=== PATIENT | female | born 1960 | race Caucasian/White ===

== ENCOUNTER 2017-09-19 13:23 | Inpatient (IN) | payer SELFPAY ==
--- NOTE | 2017-09-19 14:11 | ER Document Report ---
ED General - General Chief Complaint: Knee Injury Stated Complaint: FALL KNEE PAIN Time Seen by Provider: 09/19/17 13:36 Mode of Arrival: Medic Information source: Patient, Emergency Med Personnel Notes: 56-year-old female presents with complaints of right knee injury. Patient notes she tripped off a few steps and landed on her knee. Patient felt that her knee gave out when she tried to move it and that there is crunching sound. She denies any other injuries Patient denies any medical history notes she did fall off a horse had 9 rib fractures and some vertebral fractures in the past - HPI Onset: Just prior to arrival Onset/Duration: Sudden Quality of pain: Sharp Severity: Severe Pain Level: 5 Associated symptoms: Body/muscle aches Exacerbated by: Movement Relieved by: Denies Similar symptoms previously: No Recently seen / treated by doctor: No - Related Data Allergies/Adverse Reactions: No Known Allergies Allergy (Verified 09/19/17 13:36) Past Medical History - Social History Smoking Status: Never Smoker Cigarette use (# per day): No Chew tobacco use (# tins/day): No Smoking Education Provided: No Frequency of alcohol use: Occasional Drug Abuse: None Family History: Reviewed & Not Pertinent Patient has suicidal ideation: No Patient has homicidal ideation: No Renal/ Medical History: Denies: Hx Peritoneal Dialysis Review of Systems - Review of Systems Notes: REVIEW OF SYSTEMS: CONSTITUTIONAL : Denies fever, chills, or sweats. Denies recent illness. EENT: Denies eye, ear, throat, or mouth pain or symptoms. Denies nasal or sinus congestion or discharge. Denies throat, tongue, or mouth swelling or difficulty swallowing. CARDIOVASCULAR: Denies chest pain. Denies palpitations or racing or irregular heart beat. Denies ankle edema. RESPIRATORY: Denies cough, cold, or chest congestion. Denies shortness of breath, difficulty breathing, or wheezing. GASTROINTESTINAL: Denies abdominal pain or distention. Denies nausea, vomiting , or diarrhea. Denies blood in vomitus, stools, or per rectum. Denies black, tarry stools. Denies constipation. GENITOURINARY: Denies difficulty urinating, painful urination, burning, frequency, blood in urine, or discharge. FEMALE GENITOURINARY: Denies vaginal bleeding, heavy or abnormal periods, irregular periods. Denies vaginal discharge or odor. MUSCULOSKELETAL: Admits to right knee pain SKIN: Denies rash, lesions or sores. HEMATOLOGIC : Denies easy bruising or bleeding. LYMPHATIC: Denies swollen, enlarged glands. NEUROLOGICAL: Denies confusion or altered mental status. Denies passing out or loss of consciousness. Denies dizziness or lightheadedness. Denies headache. Denies weakness or paralysis or loss of use of either side. Denies problems with gait or speech. Denies sensory loss, numbness, or tingling. Denies seizures. PSYCHIATRIC: Denies anxiety or stress. Denies depression, suicidal ideation, or homicidal ideation. ALL OTHER SYSTEMS REVIEWED AND NEGATIVE. PHYSICAL EXAMINATION: GENERAL: Well-appearing, well-nourished and in no acute distress. HEAD: Atraumatic, normocephalic. EYES: Pupils equal round and reactive to light, extraocular movements intact, conjunctiva are normal. ENT: Nares patent, oropharynx clear without exudates. Moist mucous membranes. NECK: Normal range of motion, supple without lymphadenopathy LUNGS: Breath sounds clear to auscultation bilaterally and equal. No wheezes rales or rhonchi. HEART: Regular rate and rhythm without murmurs ABDOMEN: Soft, nontender, nondistended abdomen. No guarding, no rebound. No masses appreciated. Female : deferred Musculoskeletal: Limited range of motion of the right knee secondary to pain, there is a large effusion of the right knee noted pulses intact sensation motor function and foot normal NEUROLOGICAL: Cranial nerves grossly intact. Normal speech, normal gait. Normal sensory, motor exams PSYCH: Normal mood, normal affect. SKIN: [place] Dictation was performed using untapt voice recognition software Physical Exam - Vital signs Vitals: Temp Pulse Resp BP Pulse Ox 97.7 F 68 17 150/77 H 98 09/19/17 13:33 09/19/17 13:33 09/19/17 13:33 09/19/17 13:33 09/19/17 13:33 Course - Re-evaluation Re-evalutation: 09/19/17 14:34 Comminuted fracture tibial plateau noted, patient will be admitted to Dr. Manzo service for surgical intervention - Vital Signs Vital signs: Temp Pulse Resp BP Pulse Ox 97.7 F 68 17 150/77 H 98 09/19/17 13:33 09/19/17 13:33 09/19/17 13:33 09/19/17 13:33 09/19/17 13:33 - Laboratory Result Diagrams: 09/19/17 14:12 09/19/17 14:12 Laboratory results interpreted by me: 09/19/17 14:12 Seg Neutrophils % 84.4 H Lymphocytes % 9.0 L - Diagnostic Test Radiology reviewed: Image reviewed - Comminuted tibial plateau fracture with displacement on the right two-view knee, Reports reviewed Procedures - Immobilization Right Knee Time completed: 15:00 Pre-Proc Neuro Vasc Exam: Normal Immobilizer type: Knee immobilizer Performed by: PCT Post-Proc Neuro Vasc Exam: Normal Alignment checked and good: Yes Discharge - Discharge Clinical Impression: Knee fracture, right Condition: Stable Disposition: ADMITTED INPATIENT Admitting Provider: Surgicalist Unit Admitted: Surgical Floor
--- NOTE | 2017-09-19 14:30 | RADIOLOGY REPORT (SQ) ---
EXAM DESCRIPTION: KNEE RIGHT 2 VIEWS COMPLETED DATE/TIME: 09/19/2017 2:16 pm REASON FOR STUDY: Fall COMPARISON: None. NUMBER OF VIEWS: Two views. TECHNIQUE: AP and lateral radiographic images acquired of the right knee. LIMITATIONS: None. FINDINGS: MINERALIZATION: Normal. BONES: There is a comminuted intra-articular fracture of the proximal tibia with involvement of both the medial and lateral tibial plateaus and moderate displacement of the dominant medial plateau fract ure fragment resulting in a Schatzker type 4 fracture. Bones otherwise intact. JOINT: Lipohemarthrosis. SOFT TISSUES: Soft tissue swelling. OTHER: No other significant finding. IMPRESSION: SCHATZKER TYPE FOR TIBIAL PLATEAU FRACTURE DETAILED ABOVE. ORTHOPEDIC SURGICAL CONSU LTATION RECOMMENDED. TECHNICAL DOCUMENTATION: JOB ID: [id number] [employer]- All Rights Reserved Reading location - IP/workstation name: [email or web address]
[2017-09-19] MEDS ORDERED: HYDROMORPHONE HCL INJ/PF 2 MG/ML AMPULE IV ONE (14:32)
[2017-09-19 14:55] LABS: ABSOLUTE BASOPHILS # (AUTO) 0.1 10^3/uL (0.0-0.2); ABSOLUTE EOSINOPHILS # (AUTO) 0.1 10^3/uL (0.0-0.6); ABSOLUTE LYMPHOCYTES (AUTO) 0.8 10^3/uL (0.5-4.7); ABSOLUTE MONOCYTES (AUTO) 0.5 10^3/uL (0.1-1.4); ABSOLUTE NEUT (AUTO) 7.9 10^3/uL (1.7-8.2); BASOPHILS % (AUTO) 0.7 % (0-2); HEMATOCRIT 39.3 % (36.0-47.0); HEMOGLOBIN 13.2 g/dL (12.0-15.5); MEAN CORPUSCULAR HEMOGLOBIN 27.6 pg (27.0-33.4); MEAN CORPUSCULAR HGB CONC 33.6 g/dL (32.0-36.0); MEAN CORPUSCULAR VOLUME 82 fl (80-97); MONOCYTES % (AUTO) 4.9 % (3-13); PLATELET COUNT 199 10^3/uL (150-450); RED BLOOD COUNT 4.78 10^6/uL (3.72-5.28); RED CELL DISTRIBUTION WIDTH 12.9 % (11.5-14.0); SEGMENTED NEUTROPHILS % (AUTO) 84.4 % (42-78); TOTAL CELLS COUNTED % (AUTO) 100 %; WHITE BLOOD COUNT 9.3 10^3/uL (4.0-10.5)
--- NOTE | 2017-09-19 16:03 | RADIOLOGY REPORT (SQ) ---
EXAM DESCRIPTION: CHEST SINGLE VIEW COMPLETED DATE/TIME: 09/19/2017 3:53 pm REASON FOR STUDY: preop for right tibial plateau fracture. COMPARISON: None. EXAM PARAMETERS: NUMBER OF VIEWS: One view. TECHNIQUE: Single frontal radiographic view of the chest acquired. RADIATION DOSE: NA LIMITATIONS: None. FINDINGS: LUNGS AND PLEURA: No consolidation, pneumothorax or pleural effusion. MEDIASTINUM AND HILAR STRUCTURES: No masses. Contour normal. HEART AND VASCULAR STRUCTURES: Heart normal in size. Normal vasculature. BONES: There is a healed fracture at the right 7th rib. HARDWARE: None in the chest. IMPRESSION: NO ACUTE RADIOGRAPHIC FINDING IN THE CHEST. TECHNICAL DOCUMENTATION: JOB ID: [id number] [place]-[id number] 2010 [employer]- All Rights Reserved Reading location - IP/workstation name: [email or web address]
[2017-09-19 16:38] LABS: ALANINE AMINOTRANSFERASE 31 U/L (9-52); ALBUMIN 4.3 g/dL (3.5-5.0); ALKALINE PHOSPHATASE 83 U/L (38-126); ANION GAP 14 (5-19); ASPARTATE AMINO TRANSFERASE 24 U/L (14-36); BILIRUBIN,DIRECT 0.3 mg/dL (0.0-0.4); BILIRUBIN,TOTAL 0.7 mg/dL (0.2-1.3); BLOOD UREA NITROGEN 15 mg/dL (7-20); CALCIUM 9.8 mg/dL (8.4-10.2); CARBON DIOXIDE 25 mmol/L (22-30); CHLORIDE 103 mmol/L (98-107); GLUCOSE 98 mg/dL (75-110); POTASSIUM 4.3 mmol/L (3.6-5.0); SODIUM 141.8 mmol/L (137-145); TOTAL PROTEIN 7.6 g/dL (6.3-8.2)
[2017-09-19] MEDS ORDERED: GLUCAGON,HUMAN RECOMB 1 MG INJ SUBCUT PRN (17:29)
[2017-09-19] MEDS ORDERED: DEXTROSE 40% GEL 15 GM TUBE PO PRN ×2 (17:29)
[2017-09-19] MEDS ORDERED: DEXTROSE 50%-WATER 25 GM/50 ML DISP.SYRIN IV PRN ×2 (17:29)
[2017-09-19] MEDS ORDERED: RINGERS SOLUTION,LACTATED 1,000 ML IV PRN (17:59)
[2017-09-19] MEDS: HYDROMORPHONE HCL INJ/PF 2 MG/ML AMPULE IV PRN (20:47)
[2017-09-20] MEDS: HYDROMORPHONE HCL INJ/PF 2 MG/ML AMPULE IV PRN ×3 (03:12→12:29)
[2017-09-20] MEDS ORDERED: CEFAZOLIN 2 GM/D5W RTU 2 GM/50 ML RTUPB IV PRN (06:34)
--- NOTE | 2017-09-20 06:38 | PDOC H&P ---
History of Present Illness Admission Date/PCP: 09/19/17 14:44 History of Present Illness: SURAJ DELA CRUZ is a 56 year old female with a noncontributory past medical history who tripped and fell and sustained an injury to her right knee. She was brought to the emergency room where a displaced right medial tibial plateau fracture was identified. She is admitted to orthopedic service for fracture management. Past Medical History Cardiac Medical History: Denies: None, Atrial Fibrillation, Congestive Heart Failure, Coronary Artery Disease, DVT, Myocardial Infarction, Hyperlipidema, Hypertension, Peripheral Vascular Disease, Pulmonary Embolism, Heart Murmur, Other Pulmonary Medical History: Denies: None, Asthma, Bronchitis, Chronic Obstructive Pulmonary Disease (COPD ), Intubation, Pneumonia, Respiratory Failure, Sleep Apnea, Tuberculosis, Other Malignancy Medical History: Denies: None, Bone Cancer, Brain Cancer, Breast Cancer, Cervical Cancer, Colorectal Cancer, Leukemia, Liver Cancer, Lung Cancer, Lymphoma, Ovarian Cancer , Pancreatic Cancer, Renal (Kidney) Cancer, Skin Cancer, Other Psychiatric Medical History: Denies: Depression Past Surgical History Past Surgical History: Reports: None Social History Information Source: Patient, [facility] Records Lives with: Family Smoking Status: Never Smoker Frequency of Alcohol Use: Social Hx Recreational Drug Use: No Drugs: None Hx Prescription Drug Abuse: No Family History Family History: Reviewed & Not Pertinent Parental Family History Reviewed: No Children Family History Reviewed: No Sibling(s) Family History Reviewed.: No Medication/Allergy Home Medications: No Home Medications 09/19/17 Allergies/Adverse Reactions: No Known Allergies Allergy (Verified 09/19/17 13:36) Review of Systems All systems: as per [facility] Physical Exam Vital Signs: Temp Pulse Resp BP Pulse Ox 37.3 C 85 18 130/65 H 95 09/19/17 23:03 09/19/17 23:03 09/19/17 23:03 09/19/17 23:03 09/19/17 23:03 Intake & Output 09/18/17 09/19/17 09/20/17 06:59 06:59 06:59 Intake Total 240 Balance 240 Weight 83.3 kg Physical Exam: The patient is a middle-aged white female lying in hospital bed. She is in minimal distress. She is alert oriented and appropriate. Right extremity is elevated on pillows. Knee immobilizer in place. General appearance: PRESENT: no acute distress Head exam: PRESENT: normocephalic Respiratory exam: PRESENT: unlabored Cardiovascular exam: PRESENT: RRR Pulses: PRESENT: +1 pedal pulses bilateral Vascular exam: PRESENT: normal capillary refill GI/Abdominal exam: PRESENT: soft Rectal exam: PRESENT: deferred Neurological exam: PRESENT: alert, awake, oriented to person, oriented to place , oriented to time, oriented to situation. ABSENT: motor sensory deficit Psychiatric exam: PRESENT: appropriate affect, normal mood. ABSENT: homicidal ideation, suicidal ideation Skin exam: PRESENT: dry, intact, warm. ABSENT: cyanosis, rash Results Laboratory Results: 09/19/17 15:50 09/19/17 15:50 Sodium 141.8 Potassium 4.3 Chloride 103 Carbon Dioxide 25 Anion Gap 14 BUN 15 Creatinine 0.69 Est GFR ( Amer) > 60 Est GFR (Non-Af Amer) > 60 Glucose 98 Calcium 9.8 Total Bilirubin 0.7 AST 24 ALT 31 Alkaline Phosphatase 83 Total Protein 7.6 Albumin 4.3 Impressions: Knee X-Ray 09/19/17 00:00 IMPRESSION: SCHATZKER TYPE FOR TIBIAL PLATEAU FRACTURE DETAILED ABOVE. ORTHOPEDIC SURGICAL CONSULTATION RECOMMENDED. Chest X-Ray 09/19/17 14:10 IMPRESSION: NO ACUTE RADIOGRAPHIC FINDING IN THE CHEST. Status: Imported from PACS Assessment & Plan - Diagnosis (1) Tibial plateau fracture, right Qualifiers: Encounter type: initial encounter Fracture type: closed Qualified Code(s) : S82.141A - Displaced bicondylar fracture of right tibia, initial encounter for closed fracture Is this a current diagnosis for this admission?: Yes Plan: 56-year-old white female with a noncontributory past medical history now a displaced right tibial plateau fracture. Patient be best served with an open reduction internal fixation of the fracture. There is been discussed with her in great detail in terms of both the internal fixation recommended as well as a surgical approach. We will proceed with this under choice anesthesia on an inpatient basis. - Time Time Spent: 50 to 70 Minutes Critical Time spent with patient: 15-24 minutes Anticipated discharge: Home with Homehealth Within: Other
[2017-09-20] MEDS ORDERED: TRANEXAMIC ACID 1,000 MG in DEXTROSE 5%-WATER 50 ML IV PRN (06:43)
--- NOTE | 2017-09-20 08:48 | RADIOLOGY REPORT (SQ) ---
EXAM DESCRIPTION: CT RT LOWER EXTREMITY WITHOUT COMPLETED DATE/TIME: 09/20/2017 8:30 am REASON FOR STUDY: pre surgery today- needs 3d reconstructio COMPARISON: Right knee films 09/19/2017 TECHNIQUE: CT scan of the right knee performed without intravenous or oral contrast. Images reviewe d with soft tissue and bone windows. Reconstructed coronal and sagittal MPR images reviewed. All im ages stored on PACS. Additional 3D shaded surface display images were saved to PACS. All CT scanners at this facility use dose modulation, iterative reconstruction, and/or weight based d osing when appropriate to reduce radiation dose to as low as reasonably achievable (ALARA). [facility]: Dose Right [facility]: CareDose [facility]: Dose Right [facility]: Teradose 4D [facility]: Curbside RADIATION DOSE: 5 mGy. LIMITATIONS: None. FINDINGS: Grossly normal bone density. Comminuted proximal right tibia fracture is present. The fracture line extends from the interspinous region to the medial tibial metaphysis, with a large medial tibial plateau fragment mildly displaced with mild articular surface depression. Less than 5 mm of articular surface depression. This is b est shown on coronal reconstruction image 31. There is a fracture through the posterior edge lateral tibial plateau. The dorsal edge of the low la teral tibial plateau is displaced dorsally with 8 mm of depression of the articular surface best show n on sagittal reconstruction image 28. On the sagittal reconstructions the anterior cruciate ligament appears to be torn. Posterior cruciat e ligament intact. Quadriceps and patellar tendons grossly intact. Menisci not well seen. Distal femur, proximal fibula, patella in the field of view are intact. Large suprapatellar knee joint effusion with lipohemarthrosis. IMPRESSION: Acute fracture through the proximal right tibia as above. TECHNICAL DOCUMENTATION: JOB ID: [id number] Quality ID # [id number]: Final reports with documentation of one or more dose reduction techniques (e.g., Au tomated exposure control, adjustment of the mA and/or kV according to patient size, use of iterative reconstruction technique) 2010 [employer]- All Rights Reserved Reading location - IP/workstation name: [email or web address]
[2017-09-20] MEDS ORDERED: LIDOCAINE 2% INJ-PF (20 MG/ML) 2 ML AMPUL ONE (09:38)
[2017-09-20] MEDS ORDERED: SUCCINYLCHOLINE CHLORIDE INJ 200 MG/10 ML VIAL ONE (09:38)
[2017-09-20] MEDS ORDERED: CEFAZOLIN INJ 1 GM VIAL ONE (13:56)
[2017-09-20] MEDS ORDERED: MIDAZOLAM 2 MG/2 ML INJ ONE (13:59)
[2017-09-20] MEDS ORDERED: FENTANYL CITRATE INJ/PF 100 MCG/2 ML AMPUL ONE (13:59)
[2017-09-20] MEDS ORDERED: PROPOFOL INJ 200 MG/20 ML VIAL IV ONE (13:59)
[2017-09-20] MEDS ORDERED: HYDROMORPHONE HCL INJ/PF 2 MG/ML AMPULE ONE (14:00)
[2017-09-20] MEDS ORDERED: ACETAMINOPHEN 100 ML IV ONE (14:00)
[2017-09-20] MEDS: TRANEXAMIC ACID INJ/PF 1,000 MG/10 ML SDV IV ONE ×2 (14:25→14:51)
[2017-09-20] MEDS ORDERED: ONDANSETRON HCL INJ/PF 4 MG/2 ML SDV IV PRN (14:54)
[2017-09-20] MEDS ORDERED: PROMETHAZINE HCL INJ 25 MG/1 ML VIAL IV PRN (14:54)
[2017-09-20] MEDS ORDERED: DIPHENHYDRAMINE HCL 50 MG/ML VIAL IV PRN (14:54)
[2017-09-20] MEDS ORDERED: FENTANYL CITRATE INJ/PF 100 MCG/2 ML AMPUL IV PRN ×3 (14:54)
--- NOTE | 2017-09-20 15:24 | Operative Report ---
Operative Report DATE OF SURGERY: 09/20/17 PREOPERATIVE DIAGNOSIS: Right tibial plateau fracture OPERATION: Open reduction internal fixation right tibial plateau fracture SURGEON: RENARD VILLEGAS ANESTHESIA: GA ESTIMATED BLOOD LOSS: 100 PROCEDURE: With the patient supine and operative table the right lower extreme was prepped and draped in sterile fashion. The limb is elevated for exsanguination tourniquet inflated 280 torr. A hockey-stick type incision is made over the anteromedial aspect of the tibia. Sharp dissection was carried incision through the periosteal. The periosteum was elevated. Subsequently pelvic reduction forceps is placed across the proximal tibia through a stab wound in the lateral compartment and over the medial compartment as exposed. Is used to affected an anatomic reduction tibial plateau. Subsequent [place] titanium proximal tibial plate is applied medially and secured with 4 screws distally, 1 kick stand screw, and then 3 screws across the sub-chondral region. The fracture reduction hardware placement checked fluoroscopically and felt to be adequate. The tourniquet is deflated. The wound is irrigated. Is closed in layers with interrupted Vicryl followed by luis fernando. A sterile compressive dressing was applied and the patient returned to PACU in satisfactory vision.
[2017-09-20] MEDS ORDERED: RINGERS SOLUTION,LACTATED 1,000 ML IV PRN (15:33)
[2017-09-20] MEDS ORDERED: ONDANSETRON 4 MG TAB.RAPDIS SL PRN (15:34)
[2017-09-20] MEDS: FENTANYL CITRATE INJ/PF 100 MCG/2 ML AMPUL ONE ×2 (15:55→16:00)
[2017-09-20] MEDS: MORPHINE SULFATE 10 MG/ML INJ IV SCH ×5 (16:44→23:57)
--- NOTE | 2017-09-20 17:26 | RADIOLOGY REPORT (SQ) ---
EXAM DESCRIPTION: KNEE RIGHT 2 VIEWS; NO CHG FLUORO COMPLETED DATE/TIME: 09/20/2017 3:30 pm REASON FOR STUDY: ORIF RT KNEE COMPARISON: CT right lower extremity 09/20/2017 FLUOROSCOPY TIME: 0.6 minutes 25 images acquired, 5 saved images to PACS. TECHNIQUE: Intra-operative images acquired during surgical procedure to evaluate progress. NUMBER OF IMAGES: 5 images saved to PACS LIMITATIONS: None. FINDINGS: Intra procedural imaging and fluoro during ORIF right tibial plateau fracture. IMPRESSION: Intra procedural imaging and fluoro during ORIF right tibial plateau fracture COMMENT: Quality ID [id number]: Final reports for procedures using fluoroscopy that document radiation exp osure indices, or exposure time and number of fluorographic images (if radiation exposure indices are not available) Please consult full operative report of the attending physician for description of the procedure. TECHNICAL DOCUMENTATION: JOB ID: [id number] [employer]- All Rights Reserved Reading location - IP/workstation name: [email or web address]
--- NOTE | 2017-09-20 17:26 | RADIOLOGY REPORT (SQ) ---
EXAM DESCRIPTION: KNEE RIGHT 2 VIEWS; NO CHG FLUORO COMPLETED DATE/TIME: 09/20/2017 3:30 pm REASON FOR STUDY: ORIF RT KNEE COMPARISON: CT right lower extremity 09/20/2017 FLUOROSCOPY TIME: 0.6 minutes 25 images acquired, 5 saved images to PACS. TECHNIQUE: Intra-operative images acquired during surgical procedure to evaluate progress. NUMBER OF IMAGES: 5 images saved to PACS LIMITATIONS: None. FINDINGS: Intra procedural imaging and fluoro during ORIF right tibial plateau fracture. IMPRESSION: Intra procedural imaging and fluoro during ORIF right tibial plateau fracture COMMENT: Quality ID [id number]: Final reports for procedures using fluoroscopy that document radiation exp osure indices, or exposure time and number of fluorographic images (if radiation exposure indices are not available) Please consult full operative report of the attending physician for description of the procedure. TECHNICAL DOCUMENTATION: JOB ID: [id number] [employer]- All Rights Reserved Reading location - IP/workstation name: [email or web address]
[2017-09-20] MEDS ORDERED: TRANEXAMIC ACID INJ/PF 1,000 MG/10 ML SDV IV ONE (17:30)
[2017-09-21] MEDS: MORPHINE SULFATE 10 MG/ML INJ IV SCH ×6 (03:02→14:03)
[2017-09-21 06:27] LABS: ABSOLUTE LYMPHOCYTES (AUTO) 0.7 10^3/uL (0.5-4.7); ABSOLUTE NEUT (AUTO) 8.9 10^3/uL (1.7-8.2); BASOPHILS % (AUTO) 0.4 % (0-2); EOSINOPHILS % (AUTO) 0.3 % (0-6); HEMOGLOBIN 11.4 g/dL (12.0-15.5); LYMPHOCYTES % (AUTO) 6.4 % (13-45); MEAN CORPUSCULAR HEMOGLOBIN 27.6 pg (27.0-33.4); MEAN CORPUSCULAR HGB CONC 33.5 g/dL (32.0-36.0); MEAN CORPUSCULAR VOLUME 83 fl (80-97); MONOCYTES % (AUTO) 9.4 % (3-13); PLATELET COUNT 147 10^3/uL (150-450); RED BLOOD COUNT 4.11 10^6/uL (3.72-5.28); RED CELL DISTRIBUTION WIDTH 12.7 % (11.5-14.0); SEGMENTED NEUTROPHILS % (AUTO) 83.5 % (42-78); TOTAL CELLS COUNTED % (AUTO) 100 %; WHITE BLOOD COUNT 10.6 10^3/uL (4.0-10.5)
[2017-09-21 06:44] LABS: ANION GAP 11 (5-19); BLOOD UREA NITROGEN 13 mg/dL (7-20); CALCIUM 8.6 mg/dL (8.4-10.2); CARBON DIOXIDE 26 mmol/L (22-30); CHLORIDE 100 mmol/L (98-107); GLUCOSE 132 mg/dL (75-110); POTASSIUM 3.9 mmol/L (3.6-5.0)
--- NOTE | 2017-09-21 07:23 | PDOC PROGRESS REPORT ---
Subjective Progress Note for:: 09/21/17 Reason For Visit: RIGHT TIBIAL PLATEAU FRACTURE 56-year-old white female postop day 1 from an open reduction internal fixation of a right tibial plateau fracture Physical Exam Vital Signs: Temp Pulse Resp BP Pulse Ox 37.4 C 90 18 152/76 H 96 09/21/17 04:06 09/21/17 04:06 09/21/17 04:06 09/21/17 04:06 09/21/17 04:06 Intake & Output 09/20/17 09/21/17 09/22/17 06:59 06:59 06:59 Intake Total 240 5085 Output Total 520 Balance 240 4565 Weight 83.3 kg 83.3 kg General appearance: PRESENT: mild distress Head exam: PRESENT: normocephalic Respiratory exam: PRESENT: unlabored Cardiovascular exam: PRESENT: RRR Pulses: PRESENT: +1 pedal pulses bilateral Vascular exam: PRESENT: normal capillary refill GI/Abdominal exam: PRESENT: soft Rectal exam: PRESENT: deferred Extremities exam: PRESENT: other - Right lower extremity dressings clean dry and intact. Distal neurovascular examination is intact. Neurological exam: PRESENT: alert, awake, oriented to person, oriented to place , oriented to time, oriented to situation. ABSENT: motor sensory deficit Psychiatric exam: PRESENT: appropriate affect, normal mood. ABSENT: homicidal ideation, suicidal ideation Skin exam: PRESENT: dry, intact, warm. ABSENT: cyanosis, rash Results Laboratory Results: 09/21/17 05:36 09/21/17 05:36 09/21/17 09/21/17 05:36 05:36 WBC 10.6 H RBC 4.11 Hgb 11.4 L Hct 34.0 L MCV 83 MCH 27.6 MCHC 33.5 RDW 12.7 Plt Count 147 L Seg Neutrophils % 83.5 H Lymphocytes % 6.4 L Monocytes % 9.4 Eosinophils % 0.3 Basophils % 0.4 Absolute Neutrophils 8.9 H Absolute Lymphocytes 0.7 Absolute Monocytes 1.0 Absolute Eosinophils 0.0 Absolute Basophils 0.0 Sodium 137.0 Potassium 3.9 Chloride 100 Carbon Dioxide 26 Anion Gap 11 BUN 13 Creatinine 0.60 Est GFR ( Amer) > 60 Est GFR (Non-Af Amer) > 60 Glucose 132 H Calcium 8.6 Impressions: Chest X-Ray 09/19/17 14:10 IMPRESSION: NO ACUTE RADIOGRAPHIC FINDING IN THE CHEST. Fluoroscopy 09/20/17 00:00 IMPRESSION: Intra procedural imaging and fluoro during ORIF right tibial plateau fracture Knee X-Ray 09/20/17 00:00 IMPRESSION: Intra procedural imaging and fluoro during ORIF right tibial plateau fracture Lower Extremity CT 09/20/17 00:00 IMPRESSION: Acute fracture through the proximal right tibia as above. Status: Imported from PACS Assessment & Plan - Diagnosis (1) Tibial plateau fracture, right Qualifiers: Encounter type: initial encounter Fracture type: closed Qualified Code(s) : S82.141A - Displaced bicondylar fracture of right tibia, initial encounter for closed fracture Is this a current diagnosis for this admission?: Yes Plan: 56-year-old white female postop day 1 status post open reduction internal fixation of a right tibial plateau fracture. Plan will be mobilization with physical therapy today on a touchdown weightbearing restriction on the right lower extremity. - Time Time Spent with patient: 15-24 minutes Anticipated discharge: Other Within: Other
[2017-09-21] MEDS ORDERED: ACETAMINOPHEN 325 MG TABLET PO PRN (08:43)
[2017-09-21] MEDS ORDERED: ACETAMINOPHEN 325 MG TABLET ONE (08:48)
[2017-09-21] MEDS: ASPIRIN 81 MG TABLET, ENT COATED PO SCH (08:49)
[2017-09-21] MEDS: OXYCODONE HCL IR 5 MG TABLET PO PRN ×2 (12:38→20:26)
[2017-09-22] MEDS: OXYCODONE HCL IR 5 MG TABLET PO PRN ×3 (02:38→17:36)
--- NOTE | 2017-09-22 07:25 | PDOC PROGRESS REPORT ---
Subjective Progress Note for:: 09/22/17 Reason For Visit: RIGHT TIBIAL PLATEAU FRACTURE 56-year-old white female postop day 2 from an open reduction internal fixation of right tibial plateau fracture Physical Exam Vital Signs: Temp Pulse Resp BP Pulse Ox 37.4 C 91 16 134/69 H 95 09/22/17 04:38 09/22/17 04:38 09/22/17 04:38 09/22/17 04:38 09/22/17 04:38 Intake & Output 09/21/17 09/22/17 09/23/17 06:59 06:59 06:59 Intake Total 5085 1166 Output Total 520 350 Balance 4565 816 Weight 83.3 kg 84.1 kg General appearance: PRESENT: mild distress Head exam: PRESENT: normocephalic Respiratory exam: PRESENT: unlabored Cardiovascular exam: PRESENT: RRR Pulses: PRESENT: +1 pedal pulses bilateral Vascular exam: PRESENT: normal capillary refill Extremities exam: PRESENT: other - Right lower extremity dressing clean dry and intact. Distal neurovascular examination is intact. Neurological exam: PRESENT: alert, awake, oriented to person, oriented to place , oriented to time, oriented to situation. ABSENT: motor sensory deficit Psychiatric exam: PRESENT: appropriate affect, normal mood. ABSENT: homicidal ideation, suicidal ideation Skin exam: PRESENT: dry, intact, warm. ABSENT: cyanosis, rash Results Laboratory Results: 09/21/17 05:36 09/21/17 05:36 Impressions: Chest X-Ray 09/19/17 14:10 IMPRESSION: NO ACUTE RADIOGRAPHIC FINDING IN THE CHEST. Fluoroscopy 09/20/17 00:00 IMPRESSION: Intra procedural imaging and fluoro during ORIF right tibial plateau fracture Knee X-Ray 09/20/17 00:00 IMPRESSION: Intra procedural imaging and fluoro during ORIF right tibial plateau fracture Lower Extremity CT 09/20/17 00:00 IMPRESSION: Acute fracture through the proximal right tibia as above. Status: Imported from PACS Assessment & Plan - Diagnosis (1) Tibial plateau fracture, right Qualifiers: Encounter type: initial encounter Fracture type: closed Qualified Code(s) : S82.141A - Displaced bicondylar fracture of right tibia, initial encounter for closed fracture Is this a current diagnosis for this admission?: Yes Plan: This 56-year-old status post ORIF of right tibial plateau fracture with uneventful postop course. At this point the patient has not made sufficient progress with physical therapy to consider discharge home. She will continue other postoperative rehabilitation and reassess her discharge status tomorrow. - Time Time Spent with patient: 15-24 minutes Anticipated discharge: Home with Homehealth Within: Other
[2017-09-22] MEDS: ASPIRIN 81 MG TABLET, ENT COATED PO SCH (08:50)
[2017-09-23] MEDS: OXYCODONE HCL IR 5 MG TABLET PO PRN ×3 (00:02→12:50)
--- NOTE | 2017-09-23 07:13 | PDOC DISCHARGE SUMMARY ---
General - Admit/Disc Date/PCP Admission Date/Primary Care Provider: 09/19/17 14:44 Discharge Date: 09/23/17 - Discharge Diagnosis (1) Tibial plateau fracture, right Is this a current diagnosis for this admission?: Yes - Additional Information Resuscitation Status: Full Code Discharge Diet: As Tolerated, Regular Discharge Activity: Balance Activity w/Rest, No Driving, No tub bath Home Medications: Aspirin [Ecotrin 81 mg EC Tablet] 81 mg PO DAILY tabec 09/23/17 Oxycodone HCl [Oxy-Ir 5 mg Tablet] 5 mg PO Q6HP PRN tablet 09/23/17 History of Present Illness History of Present Illness: The patient is a 56-year-old white female with a noncontributory past medical history who fell on the day of admission and sustained a displaced right tibial plateau fracture. She is admitted to orthopedic service for fracture management. Hospital Course Hospital Course: Patient was taken to the operating room and undergoes not uncomplicated open reduction internal fixation of her right proximal tibial plateau fracture. She is mobilized with physical therapy postoperatively on a touchdown weightbearing restriction. Pain is well controlled with oral analgesics. Patient prefers ambulating with crutches as opposed to a walker. Physical Exam Vital Signs: Temp Pulse Resp BP Pulse Ox 37.8 C 79 16 129/60 H 97 09/23/17 03:41 09/23/17 03:41 09/23/17 03:41 09/23/17 03:41 09/23/17 03:41 Intake & Output 09/22/17 09/23/17 09/24/17 06:59 06:59 06:59 Intake Total 1166 2380 Output Total 350 975 Balance 816 1405 Weight 84.1 kg 84.5 kg General appearance: PRESENT: no acute distress, well-nourished Respiratory exam: PRESENT: unlabored Cardiovascular exam: PRESENT: RRR Pulses: PRESENT: +1 pedal pulses bilateral Vascular exam: PRESENT: normal capillary refill GI/Abdominal exam: PRESENT: soft Rectal exam: PRESENT: deferred Extremities exam: PRESENT: other - Right lower extremity compression dressing remains in place as does the knee immobilizer. Distal neurovascular examination to the toes is intact. Neurological exam: PRESENT: alert, awake, oriented to person, oriented to place , oriented to time, oriented to situation. ABSENT: motor sensory deficit Psychiatric exam: PRESENT: appropriate affect, normal mood. ABSENT: homicidal ideation, suicidal ideation Skin exam: PRESENT: dry, intact, warm. ABSENT: cyanosis, rash Results Laboratory Results: 09/21/17 05:36 09/21/17 05:36 Impressions: Chest X-Ray 09/19/17 14:10 IMPRESSION: NO ACUTE RADIOGRAPHIC FINDING IN THE CHEST. Fluoroscopy 09/20/17 00:00 IMPRESSION: Intra procedural imaging and fluoro during ORIF right tibial plateau fracture Knee X-Ray 09/20/17 00:00 IMPRESSION: Intra procedural imaging and fluoro during ORIF right tibial plateau fracture Lower Extremity CT 09/20/17 00:00 IMPRESSION: Acute fracture through the proximal right tibia as above. Status: Imported from [facility] Qualifiers - * PATIENT BEING DISCHARGED WITH ANY OF THE FOLLOWING DIAGNOSIS: No VTE patient discharged on overlapping Therapy?: Yes Plan Discharge Plan: Patient to be discharged home with home health services. Follow-up with Dr. Manzo in the [facility] for surgery in 2 weeks for staple removal. In the interim the patient to maintain a touchdown weightbearing restriction.
[2017-09-23] MEDS: ASPIRIN 81 MG TABLET, ENT COATED PO SCH (09:20)
[2017-09-23 16:55] VITALS: BP 116/59
== END 2017-09-23 17:18 | disposition home health service (06) | DRG 494 ==
LOC: ER 13:23 → EH 14:44 → 4S 16:32
PROVIDERS: ADMIT Orthopaedic Surgery; ATTEND Orthopaedic Surgery
PROC: 0QSG04Z Reposition Right Tibia with Internal Fixation Device, Open Approach (ICD-10-PCS; principal; 2017-09-20 14:15)
DX: S82.141A Displaced bicondylar fracture of right tibia, initial encounter for closed fracture (principal); W10.9XXA Fall (on) (from) unspecified stairs and steps, initial encounter; Y92.028 Other place in mobile home as the place of occurrence of the external cause; Z79.82 Long term (current) use of aspirin; Z87.81 Personal history of (healed) traumatic fracture
CPT/HCPCS: 01392; 36415; 71045; 80048; 80053; 85025; 96374; 99285; C1713; G8978-GP; G8979-GP; J0131; J0330; J0690; J1170; J2250; J2270; J2704; J3010; J3490; L1830; S0119